=== PATIENT | female | born 1945 | race Caucasian/White ===

== ENCOUNTER → 2016-12-21 | Outpatient (CLI) | payer OTHER | LOC: BRMIMAGING 11:10 | PROVIDERS: ATTEND Family Medicine | DX: K76.0 Fatty (change of) liver, not elsewhere classified (principal); K86.89 Other specified diseases of pancreas; K82.4 Cholesterolosis of gallbladder | CPT/HCPCS: 76705-PO ==

== ENCOUNTER 2017-05-30 07:57 | Inpatient (IN) | payer OTHER ==
[~2017-05-30 07:57] MED LIST: ROPIVACAINE 0.2% 80 MG, EPINEPHrine 0.2 MG, KETOROLAC TROMETHAMINE 30 MG in BAG 0 ML IU ONE; TRANEXAMIC ACID 3,000 MG in NS 50 ML IRR ONE; TRANEXAMIC ACID 3,000 MG/50 ML BAG IRR ONE
[2017-05-30] MEDS ORDERED: FAMOTIDINE 20 MG TAB PO ONE (08:38)
[2017-05-30] MEDS ORDERED: ceFAZolin 2 GM/DEXTROSE 100 ML IV ONE (08:38)
[2017-05-30] MEDS ORDERED: ACETAMINOPHEN 325 MG TAB PO ONE (08:38)
[2017-05-30] MEDS ORDERED: DEXAMETHASONE 4 MG/ML VIAL IVP ONE (08:38)
[2017-05-30] MEDS ORDERED: LR 1,000 ML IV ONE (08:39)
[2017-05-30] MEDS ORDERED: LIDOCAINE 1% 2 ML INJ ID PRN (08:39)
[2017-05-30] MEDS ORDERED: MIDAZOLAM 2 MG/2 ML VIAL IVP ONE (10:21)
--- NOTE | 2017-05-30 10:21 | PDANEPAE ---
ANE History of Present Illness right hip osteoarthritis ANE Past Medical History - Cardiovascular History Hx Hypertension: Yes Hx Arrhythmias: No Hx Chest Pain: No Hx Coronary Artery / Peripheral Vascular Disease: No Hx CHF / Valvular Disease: No Hx Palpitations: No - Pulmonary History Hx COPD: No Hx Asthma/Reactive Airway Disease: Yes Hx Recent Upper Respiratory Infection: No Hx Oxygen in Use at Home: No Hx Sleep Apnea: No Sleep Apnea Screening Result - Last Documented: Negative - Neurologic History Hx Cerebrovascular Accident: No Hx Seizures: No Hx Dementia: No - Endocrine History Hx Diabetes: No - Renal History Hx Renal Disorders: No - Liver History Hx Hepatic Disorders: No - Neurological & Psychiatric Hx Hx Neurological and Psychiatric Disorders: No - Cancer History Hx Cancer: Yes Cancer History Comment: uterine 2007 - Congenital Disorder History Hx Congenital Disorders: No - GI History Hx Gastrointestinal Disorders: No - Other Health History Other Health History: none - Chronic Pain History Chronic Pain: No - Surgical History Prior Surgeries: cataracts bilat ANE Review of Systems Review of Systems: - Exercise capacity METS (RN): 4 METS ANE Patient History - Allergies Allergies/Adverse Reactions: ciprofloxacin [From Cipro] Allergy (Verified 05/08/17 11:22) DIZZY erythromycin base Allergy (Verified 05/08/17 11:22) Hives Penicillins Allergy (Verified 05/08/17 11:22) Sulfa (Sulfonamide Antibiotics) Allergy (Verified 05/08/17 11:22) Hives - Home Medications Home Medications: ALPRAZolam [Xanax 0.5 MG (*)] 0.5 mg PO TID PRN 05/08/17 [Last Taken 05/29/17 22 :00] Acetaminophen [Tylenol ES 500 mg (*)] 500 mg PO BID PRN 05/08/17 [Last Taken 06/05 22:00] Carvedilol [Coreg (*)] 6.25 mg PO DAILY 05/08/17 [Last Taken 05/30/17] Esomeprazole Mag Trihydrate [Nexium] 40 mg PO DAILY 05/08/17 [Last Taken 07:00] Fluticasone Nasal [Flonase Nasal [place] (RX)] 1 sprays NASAL BID 05/08/17 [Last Taken 05/30/17 07:00] Fluticasone/Salmeter 250/50Mcg [Advair 250/50 (*)] 1 puffs IH BID 05/08/17 [ Last Taken 05/27/17] Furosemide [Lasix 20 MG (*)] 20 mg PO DAILY 05/08/17 [Last Taken Unknown] Potassium Cl [Klor-Con] 10 meq PO DAILY 05/08/17 [Last Taken 05/30/17 07:00] amLODIPine BESYLATE [Norvasc 5 mg (*)] 5 mg PO DAILY 05/08/17 [Last Taken 07:00] - NPO status NPO Since - Liquids (Date): 05/29/17 NPO Since - Liquids (Time): 22:00 NPO Since - Solids (Date): 05/29/17 NPO Since - Solids (Time): 22:00 - Smoking Hx Smoking Status: Never smoked - Family Anes Hx Family Hx Anesthesia Complications: none ANE Labs/Vital Signs - Vital Signs Blood Pressure: 124/93 Heart Rate: 72 Respiratory Rate: 16 O2 Sat (%): 95 Height: 162.56 cm Weight: 60.328 kg ANE Physical Exam - Airway Neck exam: FROM Mallampati Score: Class 1 Mouth exam: normal dental/mouth exam - Pulmonary Pulmonary: no respiratory distress - Cardiovascular Cardiovascular: regular rate and rhythym - ASA Status ASA Status: II
[2017-05-30] MEDS ORDERED: DEXAMETHASONE 4 MG/ML VIAL ONE (10:33)
[2017-05-30] MEDS ORDERED: ONDANSETRON 4 MG/2 ML VIAL ONE ×2 (10:33→12:09)
[2017-05-30] MEDS ORDERED: fentaNYL 100 MCG/2 ML INJ ONE (10:33)
[2017-05-30] MEDS ORDERED: PROPOFOL/EMULSION 500 MG/50 ML BOTTLE IV ONE (10:34)
[2017-05-30] MEDS ORDERED: PROMETHAZINE HCL 25 MG/ML INJ IVP PRN ×2 (11:08→11:54)
[2017-05-30] MEDS ORDERED: NALOXONE HCL 0.4 MG/ML INJ IVP PRN (11:08)
[2017-05-30] MEDS ORDERED: fentaNYL 100 MCG/2 ML INJ IVP PRN (11:08)
[2017-05-30] MEDS ORDERED: HYDROmorphONE/DILAUDID 1 MG/ML INJ IVP PRN (11:08)
[2017-05-30] MEDS ORDERED: MEPERIDINE 25 MG/ML SYR IVP PRN (11:08)
[2017-05-30] MEDS ORDERED: ONDANSETRON 4 MG/2 ML VIAL IVP PRN ×2 (11:08→11:54)
[2017-05-30] MEDS ORDERED: TEMAZEPAM 15 MG CAP PO PRN (11:54)
[2017-05-30] MEDS ORDERED: diphenhydrAMINE 25 MG CAP PO PRN (11:54)
[2017-05-30] MEDS ORDERED: METOCLOPRAMIDE 10 MG/2 ML VIAL IVP PRN (11:54)
[2017-05-30] MEDS ORDERED: PROMETHAZINE HCL 25 MG SUPPR PR PRN (11:54)
[2017-05-30] MEDS ORDERED: ONDANSETRON DISINTEGRATING 4 MG TAB PO PRN (11:54)
[2017-05-30] MEDS ORDERED: CYCLOBENZAPRINE 10 MG TAB PO PRN (11:54)
[2017-05-30] MEDS ORDERED: BISACODYL 10 MG SUPP PR PRN (11:54)
[2017-05-30] MEDS ORDERED: POLYETHYLENE GLYCOL 3350 17 GM PKT PO PRN (11:54)
[2017-05-30] MEDS ORDERED: MAGNESIUM HYDROXIDE 30 ML UDCUP PO PRN (11:54)
[2017-05-30] MEDS ORDERED: LACTULOSE 20 GM/30 ML UDCUP PO PRN (11:54)
--- NOTE | 2017-05-30 11:54 | POSTOPPROG ---
Post Op Note Date of Operation: 05/30/17 Surgeon: Laurent Walker Rear Admiral: dev walker Anesthesiologist: dr. mrianda Anesthesia: Spinal Pre-op Diagnosis: right hip OA Post-op Diagnosis: right hip OA and AVN Indication: right hip pain due to OA and AVN that failed conservative measures Procedure: R KAUR ant approach Findings: severe hip OA and AVN Inf/Abcess present in the surg proc area at time of surgery?: No EBL: 100-500
--- NOTE | 2017-05-30 11:56 | PDHPUP ---
History & Physical Update H&P update statement: This history and physical update is based on an assessment of the patient which was completed after admission or registration (within 24 hours), but prior to the surgery/procedure. H&P update: H&P reviewed & patient examined, no change in patient's condition since H&P completed
[2017-05-30] MEDS ORDERED: LR 1,000 ML IV SCH (12:00)
--- NOTE | 2017-05-30 12:04 | POSTANESTH ---
Post Anesthetic Evaluation Cardiovascular Status: Normal, Stable Respiratory Status: Normal, Stable Level of Consciousness/Mental Status: Can Participate in Eval Pain Control: Adequate, Prn Tx Ordered Nausea/Vomiting Control: Adequate, Prn Tx Ordered Complications Possibly Related to Anesthesia: None Noted
[2017-05-30] MEDS: ACETAMINOPHEN 325 MG TAB PO SCH ×3 (14:40→23:03)
[2017-05-30] MEDS: ALPRAZolam 0.5 MG TAB PO PRN (14:55)
[2017-05-30] MEDS ORDERED: FLU VACC QS 2017-18 (3YR+)/PF 0.5 ML SYR (FLUARIX QUAD) IM ONE (15:20)
[2017-05-30] MEDS: ceFAZolin 2 GM/DEXTROSE 100 ML IV SCH (17:32)
[2017-05-30] MEDS: oxyCODONE IR 5 MG TAB PO PRN ×2 (18:22→21:21)
[2017-05-30] MEDS: FLUTICASONE/SALMETER 250/50MCG DISKUS IH SCH (20:50)
[2017-05-30] MEDS ORDERED: FLUTICASONE IH SCH (21:00)
[2017-05-30] MEDS ORDERED: FLUTICASONE NASAL 120 SPRAYS/16 GM MDI EACHNARE SCH (21:00)
[2017-05-30] MEDS ORDERED: NON-FORMULARY NEW DRUG (Fluticasone Nasal [Flonase Nasal Spray] 1 SPRAYS) NASAL SCH (21:00)
[2017-05-30] MEDS ORDERED: SALMETER IH SCH (21:00)
[2017-05-30] MEDS: SENNOSIDES/DOCUSATE SODIUM TAB PO SCH (21:23)
[2017-05-30] MEDS: FAMOTIDINE 20 MG TAB PO SCH (21:23)
[2017-05-30] MEDS: ASPIRIN 325 MG TAB PO SCH (21:24)
[2017-05-31] MEDS: oxyCODONE IR 5 MG TAB PO PRN ×3 (00:41→07:40)
[2017-05-31] MEDS: ALPRAZolam 0.5 MG TAB PO PRN ×2 (00:42→07:40)
[2017-05-31] MEDS: ceFAZolin 2 GM/DEXTROSE 100 ML IV SCH (00:59)
[2017-05-31 04:34] VITALS: BP 141/78; PULSE 58
[2017-05-31] MEDS: ACETAMINOPHEN 325 MG TAB PO SCH (04:46)
[2017-05-31 05:20] LABS: HEMATOCRIT 37.8 % (38.0-47.0); HEMOGLOBIN 12.7 g/dL (12.6-16.3)
[2017-05-31] MEDS: FAMOTIDINE 20 MG TAB PO SCH (08:59)
[2017-05-31] MEDS: SENNOSIDES/DOCUSATE SODIUM TAB PO SCH (08:59)
[2017-05-31] MEDS: ASPIRIN 325 MG TAB PO SCH (08:59)
[2017-05-31] MEDS ORDERED: amLODIPine BESYLATE 5 MG TAB PO SCH (09:00)
[2017-05-31] MEDS ORDERED: POTASSIUM CL 10 MEQ TAB PO SCH (09:00)
[2017-05-31] MEDS ORDERED: PANTOPRAZOLE SODIUM 40 MG TAB PO SCH (09:00)
[2017-05-31] MEDS ORDERED: NON-FORMULARY NEW DRUG (Esomeprazole Mag Trihydrate [Nexium] 40 MG) PO SCH (09:00)
[2017-05-31] MEDS ORDERED: CARVEDILOL 6.25 MG TAB PO SCH (09:00)
[2017-05-31] MEDS ORDERED: FUROSEMIDE 20 MG TAB PO SCH (09:00)
[2017-05-31 09:40] VITALS: RESP 16; TEMP 97.5; O2SAT 94
[2017-05-31] MEDS: FLUTICASONE/SALMETER 250/50MCG DISKUS IH SCH (10:25)
--- NOTE | 2017-05-31 10:30 | SOAPPROG ---
SOAP Progress Note Assessment/Plan: Assessment: Cassie is doing well POD 1 s/p R KAUR 1) pain management: pain is well controlled on oral pain meds. 2) Anemia: level expected initially postop. asymptomatic. cont to monitor 3) VTE ppx: recommend ASA 325 mg once daily. cont JOSE MIGUEL hose and SCDs 4)D/c planning: d/c to home pending release from PT Plan: 05/31/17 10:29 Subjective: Cassie is doing well today, denies SOB, chest pain and N/V. Objective: Vital Signs Temp Pulse Resp BP Pulse Ox 36.4 C 58 L 16 141/78 H 94 05/31/17 08:00 05/31/17 09:01 05/31/17 08:00 05/31/17 09:01 05/31/17 08:00 Laboratory Results 05/31/17 04:29 05/30/17 05/31/17 06/01/17 05:59 05:59 05:59 Intake Total 2009 Output Total 1000 Balance 1009 RLE: incision dressing is clean and dry, NVI, +pf/df ICD10 Worksheet Patient Problems: Problems Problem Status Onset Primary localized osteoarthritis of right hip Acute
--- NOTE | 2017-05-31 12:02 | GDS ---
[f rep st] DISCHARGE SUMMARY ADMIT DIAGNOSIS: Right hip osteoarthritis. DISCHARGE DIAGNOSIS: Right hip osteoarthritis. PROCEDURE: Right total hip arthroplasty. DVT PROPHYLAXIS: Aspirin recommended daily. PLAN: Please follow up as scheduled, June 21 at 3 p.m. /[id number]/MODL
--- NOTE | 2017-05-31 12:35 | ASDISCHSUM ---
Discharge Information Plan Status:Home with No Needs Medically Cleared to Leave: Discharge Date:05/31/2017 11:01 AM CM D/C Disposition:Home, Routine, Self-Care ADT D/C Disposition:Home, Routine, Self-Care Projected Discharge Date:05/31/2017 11:01 AM Transportation at D/C: Discharge Delay Reason: Follow-Up Date:05/31/2017 11:01 AM Discharge Slot: Final Diagnosis: Placement Information Patient Contact Information Contact Name:ALBINA Relationship:Guy Address: City: [facility] Phone: [facility]/Zip Code: Email: Financial Information Financial Class: Primary Plan Desc:MEDICARE INPATIENT Primary Plan Number:[id number] Secondary Plan Desc:MEDICO STEVEN Secondary Plan Number:[id number] Assessment Information Intervention Information
--- NOTE | 2017-06-01 01:50 | GOP ---
[f rep st] OPERATIVE REPORT DATE OF OPERATION: 05/30/2017 SURGEON: Agustina Concepcion MD VETERINARY PRACTITIONER: Ewelina Concepcion PA-C ANESTHESIA: Spinal. PREOPERATIVE DIAGNOSIS: Right hip osteoarthritis and avascular necrosis. POSTOPERATIVE DIAGNOSIS: Right hip osteoarthritis and avascular necrosis. PROCEDURE PERFORMED: Right total hip arthroplasty with x-ray. FINDINGS: ESTIMATED BLOOD LOSS: 200 cc. INDICATIONS: The patient has progressively worsening arthritis of the hip which has failed medical m anagement. The patient understands the treatment options including continued non-operative care and has selected surgical intervention. The patient has decided to undergo total hip arthroplasty via th e direct anterior approach, understanding the risks of the procedure including, but not limited to, n eurovascular injury, infection, persistent pain, component wear and loosening, deep venous thrombosis , pulmonary embolism, limb length inequality, hip instability (including dislocation), and intra-oper ative fractures. DESCRIPTION OF PROCEDURE: After proper identification of the patient including verification and josr ing the surgical site, the patient was brought to the operating room and placed in the supine positio n. All bony prominences were well padded. Anesthesia was induced without complication and intraveno us prophylactic antibiotics were administered prior to skin incision. The operative leg was placed in the Trumpf Arch table extension and the well leg in a [place] leg ho lder. The patient was prepped and draped in the usual sterile fashion. The C-arm was draped for int ra-operative fluoroscopy to check acetabular position, femoral component position including leg lengt h and femoral offset. Attention was then drawn to surgical exposure of the hip. An incision was made with a #10 Bard Weber r blade starting 3 cm lateral and 3 cm distal to the anterior superior iliac spine measuring 8-10 cm and coursing distally toward the greater trochanter. The skin and subcutaneous tissues were divided sharply down to the fascia traci. The fascia traci was incised in line with the skin incision exposing the underlying tensor fascia traci muscle. The muscle was bluntly elevated from the fascia and the f irst extracapsular Cobra retractor was placed laterally at the junction of the superior femoral neck and greater trochanter. The lateral femoral circumflex vessels were identified, cauterized, and divi ded with the Aquamantys bipolar cautery. The deep investing fascia of the TFL was divided to allow p jorge mobilization of the muscle preventing damage during the retraction. The reflected head of the rectus femoris muscle was elevated off the anterior hip capsule and a medial Cobra retractor was plac ed just proximal to the lesser trochanter. The anterior capsulotomy was made sharply from the superolateral acetabulum to the saddle junction of the superior femoral neck and greater trochanter, then coursing inferomedial towards the lesser troc hanter. The retractors were then placed in the intracapsular position for femoral neck osteotomy. C orresponding to pre-operative templating, the osteotomy was made with the oscillating saw carefully p rotecting the greater trochanter and soft tissues. The femoral head was removed from the acetabulum with a corkscrew and confirmed to be severely arthritic with exposed bone, deformity and osteophytes. Similar findings were confirmed in the acetabulum. The Arch table extension was then placed in 40 degrees external rotation. Attention was then drawn to the acetabular preparation. After placement of the anterior and posterio r Cobra retractors outside the labrum and intracapsular, the circumferential labrum was removed sharp ly. The foveal contents were then removed and hemostasis obtained with cautery. The first reamer selected was sized using the removed femoral head. Reaming began with medialization and then commenced in 2 mm increments at 45 degrees of abduction and 15 degrees of anteversion using fluoroscopic navigation. Reaming ceased 1 mm less than the definitive acetabular component and se esponded to the pre-operative templating. The final acetabular component was inserted using fluorosc opy to achieve proper orientation yielding excellent purchase and stability in the acetabulum. The f inal acetabular liner was then placed and its seating confirmed. Attention was then turned to the femur. The Arch table extension was placed in extension and adducti on, delivering the osteotomized femoral neck into the wound. A 2-pronged femoral elevator was placed at the calcar and another at the tip of the greater trochanter. The posterolateral capsule was rele ased with cautery allowing mobilization of the femur lateral and anterior for preparation. The exter nal rotators were visualized and preserved. A curette and rongeur were used to open the starting poi nt for broaching. Serial broaching started with the #0 broach and ended with the broach that exhibit ed excellent fit in the proximal femur. A change in pitch during mallet strikes was accompanied by t sumeet inability to advance the broach any further. The trial reduction was performed and fluoroscopic n avigation was utilized to check limb length. Adjustments were made to equalize limb length according ly. After the final trials were accepted they were removed and the wound was copiously lavaged. The femo ral component was seated to the same depth as the final broach and the femoral head was impacted onto the clean trunnion. The hip was then reduced for the final time and once more fluoroscopy was used to check that limb length equality was achieved. The wound was irrigated and closed in layers, the fascia traci with 2-0 Quill, the subcutaneous tissue with 2-0 Quill, and the skin with Dermabond. Sterile dressings were applied. Final sharps and spon ge counts were accurate. The patient was then transferred to a hospital bed and brought to the [facility] room in stable condition. IMPLANTS: Accolade II, size 5 at 127. Acetabular component a 50 mm Tritanium. The liner is a Tride nt X3, 32 mm. The head is a Biolox Delta, 32 mm +0. /[id number]/MODL
== END 2017-05-31 11:01 | disposition home or self-care (01) | DRG 470 ==
LOC: F3N 07:57
PROVIDERS: ADMIT Orthopaedic Surgery; ATTEND Orthopaedic Surgery
PROC: 0SR904A Replacement of Right Hip Joint with Ceramic on Polyethylene Synthetic Substitute, Uncemented, Open Approach (ICD-10-PCS; principal; 2017-05-30 10:15)
DX: M16.11 Unilateral primary osteoarthritis, right hip (principal); M87.051 Idiopathic aseptic necrosis of right femur; I10 Essential (primary) hypertension; Z85.42 Personal history of malignant neoplasm of other parts of uterus; Z23 Encounter for immunization
CPT/HCPCS: 97116-GP; 97161-GP; 97165-GO; 97530-GP; G0008; G8978-GP-CI; G8979-GP-CI; G8980-GP-CI; G8987-GO-CI; G8988-GO-CI; G8989-GO-CI; J0171; J0690; J1100; J1885; J2250; J2405; J2704; J2795; J3010

== ENCOUNTER → 2018-01-15 | Outpatient (CLI) | payer OTHER | LOC: FIMAGING 08:39 | PROVIDERS: ATTEND Surgery | DX: R10.11 Right upper quadrant pain (principal) | CPT/HCPCS: 78227; A9537 ==

== ENCOUNTER → 2018-12-03 | Outpatient (CLI) | payer OTHER | LOC: CIMAGING 08:14 | PROVIDERS: ATTEND Internal Medicine | DX: Z12.31 Encounter for screening mammogram for malignant neoplasm of breast (principal) ==

== ENCOUNTER → 2018-12-03 | Outpatient (CLI) | payer OTHER | LOC: CIMAGING 08:27 | PROVIDERS: ATTEND Internal Medicine | DX: Z13.6 Encounter for screening for cardiovascular disorders (principal); I10 Essential (primary) hypertension; E78.00 Pure hypercholesterolemia, unspecified; I25.10 Atherosclerotic heart disease of native coronary artery without angina pectoris; R91.1 Solitary pulmonary nodule | CPT/HCPCS: 75571-PO ==

== ENCOUNTER → 2019-02-12 | Outpatient (CLI) | payer OTHER | LOC: FIMAGING 11:50 ==

== ENCOUNTER 2019-02-15 16:32 | Inpatient (IN) | payer OTHER | END 2019-02-16 11:15 | disposition home or self-care (01) | LOC: CED 16:32 → CEDHOLD 20:38 → F2N 22:07 ==